=== PATIENT | female | born 1965 | race Caucasian/White ===

== ENCOUNTER 2017-09-01 07:15 | Inpatient (IN) | payer OTHER ==
[2017-09-01] MEDS ORDERED: Dextrose 5%-Lactated Ringers 1,000 ML IV SCH (10:30)
[2017-09-01] MEDS ORDERED: Gabapentin 300 MG Cap PO ONE (10:30)
[2017-09-01] MEDS ORDERED: Celecoxib 200 MG Cap PO ONE (10:30)
[2017-09-01] MEDS ORDERED: Acetaminophen 500 MG Tab PO ONE (10:30)
[2017-09-01] MEDS ORDERED: Scopolamine 1.5 MG Transdermal Patch TOP SCH ×2 (10:30→11:00)
[2017-09-01] MEDS ORDERED: Albuterol/Ipratropium 3.0-0.5 MG/3 ML Neb Soln NEB ONE (11:00)
[2017-09-01] MEDS ORDERED: cefOXitin 2 GM in Sodium Chloride 0.9% 50 ML IV ONE (11:30)
[2017-09-01] MEDS ORDERED: Lactated Ringers 1,000 ML ONE ×3 (12:00→15:26)
[2017-09-01] MEDS ORDERED: Dexamethasone 4 MG/ML SDV ONE (12:00)
[2017-09-01] MEDS ORDERED: Midazolam 1 MG/ML 2 ML SDV ONE (12:00)
[2017-09-01] MEDS ORDERED: Lidocaine 2% 100 MG/5 ML Syringe IVPUSH ONE (12:00)
[2017-09-01] MEDS ORDERED: Succinylcholine 200 MG/10 ML MDV ONE (12:00)
[2017-09-01] MEDS ORDERED: Ondansetron 4 MG/2 ML SDV ONE (12:00)
[2017-09-01] MEDS ORDERED: fentaNYL 250 MCG/5 ML SDV ONE (12:00)
[2017-09-01] MEDS ORDERED: Lidocaine 0.4%/D5W 2 GM/500 ML BAG IV SCH (12:00)
[2017-09-01] MEDS ORDERED: Glycopyrrolate 0.2 MG/ML 5 ML MDV ONE (12:00)
[2017-09-01] MEDS ORDERED: Neostigmine Methylsulfate 1 MG/ML 5 ML Syringe ONE (12:00)
[2017-09-01] MEDS ORDERED: Propofol 200 MG/20 ML SDV ONE (12:00)
[2017-09-01] MEDS ORDERED: Ketamine 500 MG/5 ML MDV IV SCH (12:15)
[2017-09-01] MEDS ORDERED: Ropivacaine 60 ML, Dexamethasone 8 MG, EPINEPHrine 0.4 MG, Sodium Chloride 0.9% 17.6 ML NERVRT SCH ×4 (12:15)
[2017-09-01] MEDS ORDERED: cefOXitin 2 GM Vial ONE (12:39)
[2017-09-01] MEDS ORDERED: Oxymetazoline 0.05% Nasal Spray 15 ML Bottle ONE (12:53)
[2017-09-01] MEDS ORDERED: MVI, Adult with Vitamin K 10 ML, Thiamine 100 MG, Chromium/Copper/Mang/Selen/Zn 1 ML in... IV SCH ×4 (17:00)
[2017-09-01] MEDS ORDERED: Metoclopramide 10 MG/2 ML SDV IVPUSH PRN (17:00)
[2017-09-01] MEDS ORDERED: Labetalol 20 MG/4 ML Syringe IVPUSH PRN (17:00)
[2017-09-01] MEDS ORDERED: hydrOXYzine HCl 100 MG/2 ML SDV IM PRN (17:00)
[2017-09-01] MEDS ORDERED: Albuterol/Ipratropium 3.0-0.5 MG/3 ML Neb Soln INH PRN (17:00)
[2017-09-01] MEDS ORDERED: SCOPOLAMINE PATCH CHECK TOP SCH (17:00)
[2017-09-01] MEDS ORDERED: Ondansetron 4 MG/2 ML SDV IVPUSH PRN (17:00)
[2017-09-01] MEDS ORDERED: diphenhydrAMINE 50 MG/ML SDV IVPUSH PRN (17:00)
[2017-09-01] MEDS ORDERED: Pantoprazole 40 MG Vial IVPUSH SCH (20:00)
[2017-09-01] MEDS: Acetaminophen Soln 650 MG/20.3 ML UD Cup PO SCH (20:00)
[2017-09-01] MEDS: Heparin Sodium 5,000 Units/ML Vial SUBCUT SCH (20:00)
[2017-09-01] MEDS: cefOXitin 2 GM in Sodium Chloride 0.9% 50 ML IV SCH (20:00)
[2017-09-01] MEDS: Gabapentin 250 MG/5 ML Solution ML 470 ML Bottle PO SCH (21:00)
[2017-09-01] MEDS: Albuterol/Ipratropium 3.0-0.5 MG/3 ML Neb Soln INH SCH (21:00)
[2017-09-02] MEDS: Dextrose 5%-Lactated Ringers 1,000 ML IV SCH ×2 (00:37→06:46)
[2017-09-02] MEDS: Acetaminophen Soln 650 MG/20.3 ML UD Cup PO SCH ×4 (02:45→20:34)
[2017-09-02] MEDS: cefOXitin 2 GM in Sodium Chloride 0.9% 50 ML IV SCH ×2 (02:45→08:23)
[2017-09-02] MEDS ORDERED: Iohexol 647 MG/ML 50 ML SDV PO STA (03:03)
[2017-09-02] MEDS: Albuterol/Ipratropium 3.0-0.5 MG/3 ML Neb Soln INH SCH ×4 (07:18→20:52)
[2017-09-02] MEDS ORDERED: Dextrose 5%-Lactated Ringers 1,000 ML IV SCH (07:30)
[2017-09-02] MEDS: Heparin Sodium 5,000 Units/ML Vial SUBCUT SCH (08:17)
[2017-09-02] MEDS: Celecoxib 200 MG Cap PO SCH (08:18)
[2017-09-02] MEDS ORDERED: Citalopram 20 MG Tab PO SCH (09:00)
[2017-09-02] MEDS ORDERED: Lisinopril 20 MG Tab PO SCH (09:00)
--- NOTE | 2017-09-02 09:00 | CR ---
[facility] [employer] CLINICAL HISTORY: Status post Breanna-en-Y gastric bypass FINDINGS: Patient swallowed water-soluble contrast. Distal esophagus has normal contour. There is no evidence of extravasation. The is no evidence of obstruction on delayed image. Impression: Status post Breanna-en-Y bypass surgery No evidence of obstruction or extravasation
[2017-09-02] MEDS: Gabapentin 250 MG/5 ML Solution ML 470 ML Bottle PO SCH ×3 (09:21→20:52)
[2017-09-02] MEDS: Apixaban 5 MG Tab PO SCH ×2 (09:22→20:37)
[2017-09-02] MEDS: Diltiazem 120 MG Cap.CD PO SCH ×2 (09:23→09:29)
[2017-09-02] MEDS: Sotalol 80 MG Tab PO SCH ×2 (09:23→20:34)
[2017-09-02] MEDS ORDERED: Ondansetron 4 MG Tab.DIS PO PRN (10:19)
--- NOTE | 2017-09-02 11:45 | PCM.PN ---
- General Info Date of Service: 09/02/17 Admission Dx/Problem (Free Text): Obesity Subjective Update: Patient is up and ambulatory. She is tolerating her pain medication and not experiencing nausea. Functional Status: Reports: Pain Controlled, Tolerating Diet, Ambulating, Urinating - Review of Systems General: Reports: No Symptoms HEENT: Reports: No Symptoms Pulmonary: Reports: No Symptoms Cardiovascular: Reports: No Symptoms Gastrointestinal: Reports: No Symptoms Genitourinary: Reports: No Symptoms Musculoskeletal: Reports: No Symptoms Skin: Reports: No Symptoms Neurological: Reports: No Symptoms Psychiatric: Reports: No Symptoms Systems Review Comment:: Remainder of ROS is negative for pertinent positives and negatives - Patient Data Vitals - Most Recent: Last Vital Signs Temp 96.9 F 09/02/17 11:23 Pulse 77 09/02/17 11:23 Resp 16 09/02/17 11:23 BP 128/68 09/02/17 11:23 Pulse Ox 91 L 09/02/17 11:23 Weight - Most Recent: 306 lb 6.4 oz I&O - Last 24 Hours: Intake & Output 09/01/17 09/02/17 09/02/17 22:59 06:59 14:59 Intake Total 50 3354 1699 Output Total 250 3010 1500 Balance -200 344 199 Lab Results Last 24 Hours: Laboratory Results - last 24 hr 09/01/17 Range/Units 11:36 Urine HCG, Qual Negative Med Orders - Current: Current Medications Acetaminophen (Tylenol) 650 mg PO Q6H [facility] Last Admin: 09/02/17 08:16 Dose: 650 mg Albuterol/Ipratropium (Duoneb 3.0-0.5 Mg/3 Ml) 3 ml INH QIDRT [facility] Last Admin: 09/02/17 10:55 Dose: 3 ml Albuterol/Ipratropium (Duoneb 3.0-0.5 Mg/3 Ml) 3 ml INH ASDIRECTED PRN PRN Reason: BREATHING Apixaban (Eliquis) 5 mg PO BID [facility] Last Admin: 09/02/17 09:22 Dose: 5 mg Celecoxib (Celebrex) 200 mg PO DAILY@0800 [facility] Last Admin: 09/02/17 08:18 Dose: 200 mg Citalopram Hydrobromide (Celexa) 20 mg PO DAILY [facility] Last Admin: 09/02/17 09:22 Dose: 20 mg Cyanocobalamin (Vitamin B12) 1,000 mcg IM ONETIME ONE Stop: 09/03/17 09:01 Diltiazem HCl (Cardizem Cd) 240 mg PO DAILY [facility] Last Admin: 09/02/17 09:29 Dose: Not Given Gabapentin (Neurontin) 300 mg PO TID [facility] Last Admin: 09/02/17 09:21 Dose: 300 mg Hydroxyzine HCl (Vistaril) 75 - 100 mg IM Q4H PRN PRN Reason: pain Lisinopril (Prinivil) 20 mg PO DAILY [facility] Last Admin: 09/02/17 09:22 Dose: 20 mg Miscellaneous Information (Remove Patch) 1 ea TRDERM ONETIME ONE Stop: 09/03/17 10:01 Scopolamine Patch (Check) 1 each TOP DAILY [facility] Stop: 09/03/17 17:01 Last Admin: 09/02/17 09:25 Dose: Not Given Ondansetron HCl (Zofran Odt) 4 mg PO Q4H PRN PRN Reason: Nausea/Vomiting Pantoprazole Sodium (Protonix Granules) 40 mg PO Q24H [facility] Pravastatin Sodium (Pravachol) 10 mg PO BEDTIME [facility] Scopolamine (Transderm-Scop) 1.5 mg TOP Q72H [facility] Stop: 09/03/17 10:00 Last Admin: 09/01/17 10:46 Dose: 1.5 mg Sotalol HCl (Betapace) 160 mg PO BID [facility] Last Admin: 09/02/17 09:23 Dose: Not Given Discontinued Medications Acetaminophen (Tylenol Extra Strength) 1,000 mg PO ONETIME ONE Stop: 09/01/17 10:31 Last Admin: 09/01/17 10:46 Dose: 1,000 mg Albuterol/Ipratropium (Duoneb 3.0-0.5 Mg/3 Ml) 3 ml NEB ONETIME ONE Stop: 09/01/17 11:01 Last Admin: 09/01/17 14:16 Dose: 3 ml Cefoxitin Sodium (Mefoxin) Confirm Administered Dose 2 gm .ROUTE .STK-MED ONE Stop: 09/01/17 12:40 Last Admin: 09/01/17 15:34 Dose: 2 gm Celecoxib (Celebrex) 200 mg PO ONETIME ONE Stop: 09/01/17 10:31 Last Admin: 09/01/17 10:45 Dose: 200 mg Ropivacaine 60 ml/Dexamethasone 8 mg/Epinephrine HCl 0.4 mg/ Sodium Chloride 17.6 ml [facility] Admin: 09/01/17 15:14 Dose: 80 syringe Dexamethasone (Dexamethasone) Confirm Administered Dose 4 mg .ROUTE .STK-MED ONE Stop: 09/01/17 12:01 Diphenhydramine HCl (Benadryl) 25 - 50 mg IVPUSH Q4H PRN PRN Reason: ITCHING Fentanyl (Sublimaze) Confirm Administered Dose 500 mcg .ROUTE .STK-MED ONE Stop: 09/01/17 12:01 Gabapentin (Neurontin) 300 mg PO ONETIME ONE Stop: 09/01/17 10:31 Last Admin: 09/01/17 10:45 Dose: 300 mg Glycopyrrolate (Robinul) Confirm Administered Dose 1 mg .ROUTE .K-[facility] ONE Stop: 09/01/17 12:01 Heparin Sodium (Porcine) (Heparin Sodium) 5,000 units SUBCUT Q12H [facility] Stop: 09/02/17 10:00 Last Admin: 09/02/17 08:17 Dose: 5,000 units Cefoxitin Sodium 2 gm/ Sodium (Chloride) 50 mls @ 100 mls/hr IV ONETIME ONE Stop: 09/01/17 11:59 Last Admin: 09/01/17 14:30 Dose: 100 mls/hr Dextrose/Lactated Ringer's (Dextrose 5%-Lactated Ringers) 1,000 mls @ 100 mls/ hr IV [facility] Last Admin: 09/01/17 10:59 Dose: 100 mls/hr Ketamine HCl 100 mg/ Sodium (Chloride) 100 mls @ 19.17 mls/hr IV [facility] Lidocaine HCl/Dextrose (Lidocaine 2 Gm/D5w 500 Ml) 2 gm in 500 mls @ 30 mls/hr IV .[id number] [facility] Stop: 09/02/17 04:39 Last Admin: 09/01/17 17:19 Dose: 2 mg/min, 30 mls/hr Lactated Ringer's (Ringers, Lactated) Confirm Administered Dose 1,000 mls @ as directed .ROUTE .STK-MED ONE Stop: 09/01/17 12:01 Lactated Ringer's (Ringers, Lactated) Confirm Administered Dose 1,000 mls @ as directed .ROUTE .STK-MED ONE Stop: 09/01/17 12:13 Lactated Ringer's (Ringers, Lactated) Confirm Administered Dose 1,000 mls @ as directed .ROUTE .STK-MED ONE Stop: 09/01/17 15:27 Dextrose/Lactated Ringer's (Dextrose 5%-Lactated Ringers) 1,000 mls @ 175 mls/ hr IV ASDIRECTED [facility] Last Admin: 09/02/17 06:46 Dose: 175 mls/hr Multivitamins/Minerals 10 ml/Thiamine HCl 100 mg/ Chromium/Copper/Manganese/ Seleni/Zn 1 ml/ Dextrose/Lactated Ringer's 1,012 mls @ 175 mls/hr IV DAILY@ 1600 [facility] Stop: 09/02/17 10:00 Last Admin: 09/01/17 18:17 Dose: 175 mls/hr Cefoxitin Sodium 2 gm/ Sodium (Chloride) 50 mls @ 100 mls/hr IV Q6H [facility] Stop: 09/02/17 14:29 Last Admin: 09/02/17 08:23 Dose: 100 mls/hr Dextrose/Lactated Ringer's (Dextrose 5%-Lactated Ringers) 1,000 mls @ 100 mls/ hr IV ASDIRECTED [facility] Multivitamins/Minerals 10 ml/Thiamine HCl 100 mg/ Chromium/Copper/Manganese/ Seleni/Zn 1 ml/ Dextrose/Lactated Ringer's 1,012 mls @ 100 mls/hr IV DAILY@ 1600 [facility] Iohexol (Omnipaque-300) 50 ml PO .ASDIRECTED [facility] Stop: 09/02/17 03:04 Last Admin: 09/02/17 03:10 Dose: 50 ml Ketamine HCl (Ketalar) 32 mg IV ASDIRECTED [facility] Labetalol HCl (Normodyne) 5 - 15 mg IVPUSH Q1H PRN PRN Reason: SBP over 160 OR DBP over 95 Lidocaine HCl (Xylocaine 2%) 140 mg IVPUSH ONETIME ONE Stop: 09/01/17 12:01 Last Admin: 09/01/17 19:47 Dose: 140 mg Metoclopramide HCl (Reglan) 10 mg IVPUSH Q6H PRN PRN Reason: NAUSEA NOT CONTROL BY ZOFRAN Midazolam HCl (Versed 1 Mg/Ml) Confirm Administered Dose 2 mg .ROUTE .STK-MED ONE Stop: 09/01/17 12:01 Neostigmine Methylsulfate (Neostigmine) Confirm Administered Dose 5 mg .ROUTE .STK-MED ONE Stop: 09/01/17 12:01 Ondansetron HCl (Zofran) Confirm Administered Dose 4 mg .ROUTE .STK-MED ONE Stop: 09/01/17 12:01 Ondansetron HCl (Zofran) 4 mg IVPUSH Q4H PRN PRN Reason: Nausea/Vomiting Oxymetazoline HCl (Afrin Original 0.05% Nasal [place]) Confirm Administered Dose 15 ml .ROUTE .STK-MED ONE Stop: 09/01/17 12:54 Pantoprazole Sodium (Protonix Iv) 40 mg IVPUSH Q24H [facility] Last Admin: 09/01/17 20:00 Dose: 40 mg Propofol (Diprivan 20 Ml) Confirm Administered Dose 200 mg .ROUTE .STK-MED ONE Stop: 09/01/17 12:01 Scopolamine (Transderm-Scop) 1.5 mg TOP Q72H [facility] Stop: 09/03/17 10:00 Succinylcholine Chloride (Quelicin) Confirm Administered Dose 200 mg .ROUTE .STK -MED ONE Stop: 09/01/17 12:01 - Exam General: Alert, Oriented, Cooperative, No Acute Distress HEENT: Pupils Equal, Mucous Membr. Moist/[place] Neck: Supple Lungs: Normal Respiratory Effort Extremities: Normal Range of Motion Skin: Warm, Dry Neurological: No New Focal Deficit Psy/Mental Status: Alert, Normal Affect, Normal Mood - Problem List Review Problem List Initiated/Reviewed/Updated: Yes - Assessment Assessment:: Status post laparoscopic sleeve gastrectomy - Plan Plan:: 1. IV to 100cc 2. Step 2 diet without solids 3. Shower 4. Dietary teaching 5. Continue pain control 6. Plan for discharge in the am 7. Reevaluate prn or in the am
[2017-09-02] MEDS ORDERED: MVI, Adult with Vitamin K 10 ML, Thiamine 100 MG, Chromium/Copper/Mang/Selen/Zn 1 ML in... IV SCH ×4 (16:00)
[2017-09-02] MEDS ORDERED: Pantoprazole 40 MG Delayed-Release Granules 1 Packet PO SCH (20:00)
[2017-09-02] MEDS ORDERED: Pravastatin 20 MG Tab PO SCH (21:00)
[2017-09-03] MEDS: Acetaminophen Soln 650 MG/20.3 ML UD Cup PO SCH ×2 (03:28→07:34)
[2017-09-03] MEDS: Celecoxib 200 MG Cap PO SCH (07:34)
[2017-09-03] MEDS: Albuterol/Ipratropium 3.0-0.5 MG/3 ML Neb Soln INH SCH (07:54)
[2017-09-03] MEDS ORDERED: Cyanocobalamin (Vitamin B12) 1,000 MCG/ML SDV IM ONE (09:00)
--- NOTE | 2017-09-03 09:55 | PN ---
DATE OF SERVICE: 09/02/2017 The patient has been afebrile with stable vital signs. Oral intake has been good and she is up and moving. She will go up to step-2 diet today. Restart her medications. We will restart the Eliquis as well and give her one more dose of heparin while that is being transitioned and she will likely be ready for discharge home tomorrow. Leno Graves MD /[id number]
--- NOTE | 2017-09-04 08:28 | DISCH ---
ADMISSION DIAGNOSES: 1. Morbid obesity with body mass index of 45. 2. History of pacemaker. 3. Mixed hyperlipidemia. 4. Essential hypertension. 5. Paroxysmal atrial fibrillation. 6. Chronic obstructive pulmonary disease. 7. Prolonged QT interval on ECG. DISCHARGE DIAGNOSIS: Status post laparoscopic sleeve gastrectomy for morbid obesity. HISTORY: Nusrat Krishnan is a 51-year-old female with a longstanding history of morbid obesity and increasing comorbidities. After preoperative evaluation and discussion of possible risks and possible complications, she wished to proceed with surgical procedure. HOSPITAL COURSE: Nusrat had her surgery on 09/02/2015. She had no operative complications on postoperative day #1. She was started on step-2 gastric bypass diet with no cereal. Her activity was good, her pain was well managed, and she had inadequate liquid. She did also receive dietary instructions. On postoperative day #2, she was able to be discharged without any complications. PHYSICAL EXAMINATION: GENERAL: Nusrat Krishnan is a 51-year-old female. She is alert and orientated. SKIN: Warm and dry. Color is good. VITAL SIGNS: Height is 5 feet 9 inches and weight is 306 pounds. Temperature is 97.6, pulse is 76, respirations are 16, and blood pressure is 109/73. HEENT: Negative. NECK: Supple. HEART: Regular rate and rhythm. LUNGS: Clear. ABDOMEN: Incisions look good, 4 x 4's over Kaleb-Dhaliwal drain site. EXTREMITIES: Without peripheral edema. DISPOSITION: Discharged to home. CONDITION: Stable and improving. FOLLOWUP APPOINTMENT: With Silvia Mayer PA-C, on 09/11/2017 at 9 a.m. HOME MEDICATIONS: 1. Tylenol 650 mg q.6 hours p.r.n. pain for two weeks. 2. Celebrex 200 mg p.o. daily. 3. Zofran ODT 4 mg q.4 hours p.r.n. nausea, #30. 4. To resume home medication of DuoNeb 3 mL every six hours p.r.n. shortness of breath. 5. Eliquis 5 mg twice daily. 6. Symbicort two puffs inhalation twice daily. 7. Citalopram 20 mg daily. 8. Diltiazem 240 mg oral daily. 9. Lisinopril 20 mg oral daily. 10.Multivitamin one tablet daily. 11.Pravastatin 10 mg oral daily. 12.Sotalol 160 mg twice daily. 13.Prednisone 20 mg twice daily. DIET AFTER DISCHARGE: Step-2 gastric bypass diet with no cereal until 10/02/2017. Drink 8 to 10 glasses of water a day. ACTIVITY: No lifting greater than 10 pounds for two weeks. Driving, do not drive for one week. Shower/bathing, may shower. No tub bathing or swimming for six weeks. DISCHARGE INSTRUCTIONS: Notify provider if any fever, increased pain, nausea, or vomiting. Keep site clean and dry. Wear abdominal binder for two weeks and as tolerated. Use incentive spirometer 10 times every hour while awake for one week.
--- NOTE | 2017-09-04 08:46 | OR ---
DATE OF PROCEDURE: 09/01/2017 PREOPERATIVE DIAGNOSIS: Morbid obesity. POSTOPERATIVE DIAGNOSES: 1. Morbid obesity. 2. Marked hepatomegaly. 3. Paraesophageal diaphragmatic hernia. OPERATIVE PROCEDURE: 1. Laparoscopic sleeve gastrectomy (86635). 2. Adrián-Cut needle liver biopsy (22595). 3. Repair of paraesophageal diaphragmatic hernia with mesh (63422). ANESTHESIA: General. ASSISTANTS: Silvia Mayer PA-C, and PAS. Martín INDICATION FOR PROCEDURE: This is a 51-year-old female presenting with longstanding morbid obesity and increasingly significant comorbidities. After preoperative evaluation and discussion, she wished to proceed with a sleeve gastrectomy. Potential risks including bleeding, infection, leaks from the staple lines, as well as possibility of cardiopulmonary, septic, or hemorrhagic complications leading to were discussed, and the patient wishes to proceed. DETAILS OF PROCEDURE: The patient was taken to the operating room, placed in a supine position. After general endotracheal anesthesia was induced, she was converted to a lithotomy position and the abdomen was prepped and draped. At 15 cm inferior, 5 cm left of xiphoid process, transverse incision was made. The peritoneal cavity entered and inflated to 15 mmHg pressure with CO2. Laparoscope was then reinserted. No underlying trocar insertion site injuries were seen. Bilateral subcostal transversus abdominis plane blocks were then placed with direct visualization of the needle from within to be in the correct plane and standard solution being injected bilaterally. Five additional trocars were placed across the upper and mid abdomen and gentle exploration undertaken. The patient was noted to have marked hepatomegaly with liver volume being roughly 2 to 3 times normal and the liver grossly fatty infiltrated. Given this, Adrián-Cut needle biopsies were obtained from left lobe of the liver. Minimal bleeding from the biopsy sites was controlled with electrocautery. As one retracted the liver, it became evident that the patient had a paraesophageal diaphragmatic hernia with prolapse of the perigastric fat, a tongue of omentum, and some of the gastric fundus in a plane anterior to the course of the esophagus. This was reduced, and the peritoneum overlying the anterior esophagus just above the EG junction was incised and along the sides of the esophagus on each side as well. This allowed dissection of the esophagus away from the crura, and a retrocrural tunnel was created. This was then enlarged with division of some areolar attachments to the esophagus circumferentially, resulting in a roughly 4 cm intraabdominal esophageal length. The crural repair was then initiated with a series of 0 Ethibond sutures, reinforced with PTFE pledgets. This was then further reinforced with Phasix ST mesh. This was cut such that it covered the crural repair and just laterally and medially on each side away from that a centimeter or so, minimizing the amount of mesh located other than for over the crural repair. This was oriented so the Seprafilm side of the mesh would face the esophagus. The mesh was affixed with some titanium tacking screws. The omentum was then divided away from the greater curvature of the stomach with Harmonic scalpel. This continued distally to the level 2 cm proximal to the pylorus and then proximally to include the area of the short gastric vessels, including the highest and posterior short gastric vessels. Some additional areolar attachments into the posterior aspect of the stomach were taken down with Harmonic Scalpel as well. At that point, the stomach appeared to be ready for the resection phase of the procedure. Using electrocautery, beginning 2 cm proximal to the pylorus, the walton were placed across the antrum, then into the area inferior to the incisura angularis, and then to the left of that. The first two firings of the staple line were then accomplished with standard DANIEL black loads. As one passed through the incisura angularis, one was careful not to over- tighten this area. Next, three loads of the staple lines were reinforced black loads, and the remaining were reinforced purple loads. After the initial two staple lines were placed, a 32-[place] suction tube was placed per Anesthesia and positioned along the lesser curvature of the stomach, and from there into the antrum. The stomach was then pulled up so the tube was snugly up against the lesser curvature and the suction applied, which then facilitated a smooth resection of the stomach with staple loads as noted above, and that specimen was then delivered from the field. The area of the gastroesophageal junction was then reinforced with some fibrin sealant, then omentum tacked over that area, and then the remainder of the staple lines were covered with some fibrin sealant and, over the antrum, likewise some omentum pulled up into that area and sutured with some 3-0 Vicryl stitch, as had been done in the area of the esophagogastric junction. The gastric tube was then pulled back roughly custodial up into the stomach and with the pylorus being occluded, bluntly with forceps, air was injected while the sleeve gastrectomy line was injected with antibiotic-containing saline solution. Good distention was noted, and no leaks or other problems were identified. At this point, the orogastric tube was removed, and a single Kaleb-Dhaliwal drain was then placed through the left lateral trocar site and positioned adjacent to the area of the gastroesophageal junction and up into the splenic fossa. The trocars were then removed and the peritoneal cavity deflated. Incisions were closed with some 4-0 Vicryl skin stitch, which was also was used to affix the drain. The patient taken to the recovery room in satisfactory condition. Physician case assistant, Silvia Mayer, played an essential role in assisting in this case, helping to position the patient, retract structures as needed, as well as suturing and cutting sutures when indicated. Her presence improved patient's safety and decreased operative time. Leno Graves MD /[id number]
== END 2017-09-03 08:28 | disposition home or self-care (01) | DRG 621 ==
LOC: EDSTATUS 07:15 → JP.SDSSCHI 10:17 → JP.SDS 10:17 → JP.2SS 16:15
PROVIDERS: ADMIT Surgery; ATTEND Surgery
PROC: 0DB64Z3 Excision of Stomach, Percutaneous Endoscopic Approach, Vertical (ICD-10-PCS; principal; 2017-09-01)
PROC: 0FB24ZX Excision of Left Lobe Liver, Percutaneous Endoscopic Approach, Diagnostic (ICD-10-PCS; 2017-09-01)
PROC: 0BQT4ZZ Repair Diaphragm, Percutaneous Endoscopic Approach (ICD-10-PCS; 2017-09-01)
PROC: 3E0T3BZ Introduction of Anesthetic Agent into Peripheral Nerves and Plexi, Percutaneous Approach (ICD-10-PCS; 2017-09-01)
PROC: 3E0M45Z Introduction of Adhesion Barrier into Peritoneal Cavity, Percutaneous Endoscopic Approach (ICD-10-PCS; 2017-09-01)
DX: E66.01 Morbid (severe) obesity due to excess calories (principal); Z68.42 Body mass index [BMI] 45.0-49.9, adult; R16.0 Hepatomegaly, not elsewhere classified; K76.0 Fatty (change of) liver, not elsewhere classified; K44.9 Diaphragmatic hernia without obstruction or gangrene; I48.0 Paroxysmal atrial fibrillation; Z79.01 Long term (current) use of anticoagulants; Z95.0 Presence of cardiac pacemaker; I10 Essential (primary) hypertension; J44.9 Chronic obstructive pulmonary disease, unspecified; E78.2 Mixed hyperlipidemia; Z88.8 Allergy status to other drugs, medicaments and biological substances; Z51.81 Encounter for therapeutic drug level monitoring; Z79.899 Other long term (current) drug therapy; I45.81 Long QT syndrome
CPT/HCPCS: 36415; 74240; 74240-26; 81025; 82962; 83735; 83880; 84100; 86850; 86900; 86901; 88307; 88313; 94640; A9270-GY; C1781; C9113; J0171; J0330; J0694; J1100; J1644; J2001; J2250; J2405; J2704; J2710; J2795; J3010; J3411; J7030; J7042; J7050; J7120; J7620; Q9967